=== PATIENT | female | born 1965 | race Caucasian/White ===

== ENCOUNTER 2019-12-29 17:29 | Emergency (ER) | payer MEDICAID ==
[2019-12-29] MEDS ORDERED: Sodium Chloride 0.9% 10 ML Syringe FLUSH PRN (17:48)
[2019-12-29] MEDS ORDERED: Ondansetron 4 MG/2 ML SDV IV ONE (17:57)
[2019-12-29] MEDS ORDERED: Lactated Ringers 1,000 ML IV ONE (17:57)
[2019-12-29] MEDS ORDERED: fentaNYL 50 MCG/ML SDV IVPUSH ONE (17:57)
--- NOTE | 2019-12-29 18:13 | EDM.PDOC ---
ED HPI GENERAL MEDICAL PROBLEM - General Stated Complaint: ABDOMINAL PAIN Time Seen by Provider: 12/29/19 17:30 Source of Information: Reports: Patient History Limitations: Reports: No Limitations - History of Present Illness INITIAL COMMENTS - FREE TEXT/NARRATIVE: Patient comes emergency department today from the clinic for further evaluation of left chest wall pain and abdominal pain. The clinic and sent over here for further evaluation due to concerns of change in her hemoglobin as well as pallor and pain out of proportion to exam. This patient on 12/20/2019 was walking down the steps holding the handrail with her left hand when she fell landing on her right side and really pulled on her left arm when she fell. She did not hit her head. There was no head neck or back pain. She does not remember hitting her chest but since that time in the mid axillary line of the left lateral chest about the fifth 6 intercostal space she has had pain that is intermittent primarily with movement. His pain has been constant for the past 9 days. She has tried some ibuprofen without improvement. She has no shortness of breath or difficulty breathing. No midsternal chest pain. Past couple of days she has felt somewhat lightheaded and generalized weakness. No fatigue malaise or body aches. No fever or chills. No cough or congestion or shortness of breath. No midsternal chest pain. No syncope. She also complains of some left upper quadrant lateral pain to her abdomen. No nausea or vomiting. No other pain in her abdomen. No hematuria dysuria or urinary frequency. No black or tarry stools. No flank pain. No head neck or back pain. She denies any loss of consciousness with the fall. No Covid exposure no Covid symptoms. Abdomen Pain Score (Numeric/FACES): 2 - Related Data Allergies Allergy/AdvReac Type Severity Reaction Status Date / Time codeine Allergy Other Verified 12/29/19 19:06 latex Allergy Other Verified 12/29/19 19:07 Home Meds: Home Meds Citalopram [Citalopram HBr] 40 mg PO DAILY 12/29/19 [History] Cyclobenzaprine [Flexeril] 10 mg PO TID PRN #9 tab 12/29/19 [Rx] ED ROS GENERAL - Review of Systems Review Of Systems: Comprehensive ROS is negative, except as noted in HPI. ED EXAM, GENERAL - Physical Exam Exam: See Below Exam Limited By: No Limitations General Appearance: Alert, WD/WN, No Apparent Distress Eye Exam: Bilateral Eye: EOMI, PERRL Ears: Normal External Exam, Normal TMs Nose: Normal Inspection, Normal Mucosa, No Blood Throat/Mouth: Normal Inspection, Normal Lips, Normal Teeth, Normal Gums, Normal Oropharynx, Normal Voice, No Airway Compromise Head: Atraumatic, Normocephalic Neck: Normal Inspection, Supple, Non-Tender. No: Tender Lateral, Tender Midline Respiratory/Chest: No Respiratory Distress, Lungs Clear, Normal Breath Sounds, No Accessory Muscle Use, Other (Examination of the chest on the left lateral mid axillary line about the fifth 6 intercostal space there is a about pea-sized bruise. There is some mild tenderness over this area. There is no subcutaneous emphysema crepitus flail segments. The rest of the chest is unremarkable and atraumatic. There is no tachypnea increased work of breathing.) Cardiovascular: Normal Peripheral Pulses, Regular Rate, Rhythm, No JVD, No Murmur Peripheral Pulses: 2+: Radial (L), Radial (R), Posterior Tibial (L), Posterior Tibial (R), Dorsalis Pedis (L), Dorsalis Pedis (R) GI/Abdominal: Normal Bowel Sounds, Soft, Pelvis Stable, Tender (There is some mild tenderness in the left upper quadrant without rebound or guarding. There is no rigidity to the abdomen.) (Female) Exam: Deferred Rectal (Female) Exam: Deferred Back Exam: Normal Inspection, Full Range of Motion. No: CVA Tenderness (L), CVA Tenderness (R), Decreased Range of Motion, Paraspinal Tenderness, Vertebral Tenderness Extremities: Normal Inspection, Normal Range of Motion, Non-Tender, No Pedal Edema, Normal Capillary Refill Neurological: Alert, Oriented, CN II-XII Intact, Normal Cognition, Normal Gait, Normal Reflexes, No Motor/Sensory Deficits Psychiatric: Normal Affect, Normal Mood Skin Exam: Intact, Cool, Diaphoretic, Pallor #1 Interpretation EKG Date: 12/29/19 Time: 17:48 Rhythm: NSR Rate (Beats/Min): 62 [place]: Normal P-Wave: Present QRS: Normal ST-T: Normal QT: Normal Comparison: NA - No Prior EKG Course - Vital Signs Last Recorded V/S: Last Vital Signs Temp 98.1 F 12/29/19 17:30 Pulse 61 12/29/19 18:07 Resp 20 12/29/19 17:30 BP 125/60 12/29/19 18:07 Pulse Ox 97 12/29/19 17:30 - Orders/Labs/Meds Orders: Active Orders 24 hr Category Date Time Status EKG Documentation Completion [RC] STAT Care 12/29/19 17:43 Active UA RFX JONAS AND CULT IF INDIC [URIN] Stat Lab 12/29/19 19:40 Ordered Lactated Ringers [Ringers, Lactated] 1,000 ml Med 12/29/19 19:15 Active IV ASDIRECTED Sodium Chloride 0.9% [Saline Flush] Med 12/29/19 17:48 Active 10 ml FLUSH ASDIRECTED PRN Peripheral IV Insertion Adult [OM.PC] Stat Oth 12/29/19 17:43 Ordered Medication Orders Lactated Ringer's (Ringers, Lactated) 1,000 mls @ 500 mls/hr IV ASDIRECTED KETTY Sodium Chloride (Saline Flush) 10 ml FLUSH ASDIRECTED PRN PRN Reason: Keep Vein Open Labs: Laboratory Tests 12/29/19 12/29/19 12/29/19 Range/Units 18:20 18:20 18:20 WBC 6.9 (4.0-10.0) x10^3/uL RBC 3.77 L (4.00-5.50) x10^6/uL Hgb 8.7 L (12.0-16.0) g/dL Hct 29.0 L (33.0-47.0) % MCV 76.9 L (78.0-93.0) fL MCH 23.1 L (26.0-32.0) pg MCHC 30.0 L (32.0-36.0) g/dL RDW Coeff of Romaine 15.0 (10.0-15.0) % Plt Count 219 (130-400) x10^3/uL Neut % (Auto) 68.2 (50.0-80.0) % Lymph % (Auto) 22.1 L (25.0-50.0) % [place] % (Auto) 7.5 (2.0-11.0) % Eos % (Auto) 1.9 (0.0-4.0) % Baso % (Auto) 0.3 (0.2-1.2) % Sodium 144 (136-145) mmol/L Potassium 3.7 (3.5-5.1) mmol/L Chloride 107 (98-107) mmol/L Carbon Dioxide 28 (21-32) mmol/L Anion Gap 12.7 (10-20) mmol/L BUN 18 (7-18) mg/dL Creatinine 1.4 H (0.55-1.02) mg/dL Est Cr Clr Drug Dosing TNP Estimated GFR (MDRD) 39 Glucose 98 (74-106) mg/dL Lactic Acid (0.4-2.0) mmol/L Calcium 8.6 (8.5-10.1) mg/dL Corrected Calcium 9.16 (8.5-10.1) mg/dL Total Bilirubin 0.3 (0.2-1.0) mg/dL AST 66 H (15-37) U/L ALT 143 H (14-59) U/L Alkaline Phosphatase 110 (46-116) U/L Troponin I < 0.017 (<=0.056) ng/mL C-Reactive Protein 0.3 (<=0.9) mg/dL Total Protein 6.3 L (6.4-8.2) g/dL Albumin 3.3 L (3.4-5.0) g/dL Globulin 3.0 Albumin/Globulin Ratio 1.10 Lipase 103 (73-393) U/L Urine Color (YELLOW) Urine Appearance (CLEAR) Urine pH (5.0-8.0) Ur Specific [place] Urine Protein (NEGATIVE) mg/dL Urine Glucose (UA) (NEGATIVE) mg/dL Urine Ketones (NEGATIVE) mg/dL Urine Occult Blood (NEGATIVE) Urine Nitrite (NEGATIVE) Urine Bilirubin (NEGATIVE) Urine Urobilinogen (0.2) EU/dL Ur Leukocyte Esterase (NEGATIVE) 12/29/19 12/29/19 Range/Units 18:20 19:40 WBC (4.0-10.0) x10^3/uL RBC (4.00-5.50) x10^6/uL Hgb (12.0-16.0) g/dL Hct (33.0-47.0) % MCV (78.0-93.0) fL MCH (26.0-32.0) pg MCHC (32.0-36.0) g/dL RDW Coeff of Romaine (10.0-15.0) % Plt Count (130-400) x10^3/uL Neut % (Auto) (50.0-80.0) % Lymph % (Auto) (25.0-50.0) % [place] % (Auto) (2.0-11.0) % Eos % (Auto) (0.0-4.0) % Baso % (Auto) (0.2-1.2) % Sodium (136-145) mmol/L Potassium (3.5-5.1) mmol/L Chloride (98-107) mmol/L Carbon Dioxide (21-32) mmol/L Anion Gap (10-20) mmol/L BUN (7-18) mg/dL Creatinine (0.55-1.02) mg/dL Est Cr Clr Drug Dosing Estimated GFR (MDRD) Glucose (74-106) mg/dL Lactic Acid 1.8 (0.4-2.0) mmol/L Calcium (8.5-10.1) mg/dL Corrected Calcium (8.5-10.1) mg/dL Total Bilirubin (0.2-1.0) mg/dL AST (15-37) U/L ALT (14-59) U/L Alkaline Phosphatase (46-116) U/L Troponin I (<=0.056) ng/mL C-Reactive Protein (<=0.9) mg/dL Total Protein (6.4-8.2) g/dL Albumin (3.4-5.0) g/dL Globulin Albumin/Globulin Ratio Lipase (73-393) U/L Urine Color Yellow (YELLOW) Urine Appearance Clear (CLEAR) Urine pH 6.0 (5.0-8.0) Ur Specific [place] 1.010 Urine Protein Negative (NEGATIVE) mg/dL Urine Glucose (UA) Negative (NEGATIVE) mg/dL Urine Ketones Negative (NEGATIVE) mg/dL Urine Occult Blood Negative (NEGATIVE) Urine Nitrite Negative (NEGATIVE) Urine Bilirubin Negative (NEGATIVE) Urine Urobilinogen 1.0 (0.2) EU/dL Ur Leukocyte Esterase Negative (NEGATIVE) Meds: Medications Generic Name Dose Route Start Last Admin Trade Name Freq PRN Reason Stop Dose Admin Lactated Ringer's 1,000 mls @ 500 mls/hr 12/29/19 19:15 Ringers, Lactated IV ASDIRECTED KETTY Sodium Chloride 10 ml 12/29/19 17:48 Saline Flush FLUSH ASDIRECTED PRN Keep Vein Open Discontinued Medications Generic Name Dose Route Start Last Admin Trade Name Chidi PRN Reason Stop Dose Admin Cyclobenzaprine HCl 1 packet 12/29/19 19:59 Take Home: Cyclobenzaprine 10 Mg, 4 Tab Pack PO 12/29/19 20:00 ONETIME ONE Fentanyl 50 mcg 12/29/19 17:57 12/29/19 18:10 Fentanyl IVPUSH 12/29/19 17:58 50 mcg ONETIME ONE Administration Lactated Ringer's 1,000 mls @ 999 mls/hr 12/29/19 17:57 12/29/19 17:46 Ringers, Lactated IV 12/29/19 18:57 999 mls/hr ONETIME ONE Administration Iopamidol 100 ml 12/29/19 18:22 12/29/19 18:46 Isovue-300 (61%) IVPUSH 12/29/19 18:23 100 ml ONETIME ONE Administration Ondansetron HCl 4 mg 12/29/19 17:57 12/29/19 18:07 Zofran IV 12/29/19 17:58 4 mg ONETIME ONE Administration - Radiology Interpretation Free Text/Narrative:: CT chest abdomen pelvis per radiology no evidence of hematoma or bleeding in the chest abdomen or pelvis. No other acute findings. Some chronic changes of gastric bypass as well as cholecystectomy. - Re-Assessments/Exams Free Text/Narrative Re-Assessment/Exam: 12/29/19 Since initial blood pressure when she is sitting on the chair and symptomatic with some weakness and lightheadedness shows a blood pressure of 87/55. Patient was laid on the bed and a IV was established 1 L LR wide open. Reviewed the chest x-ray with the left rib detail that was completed in the clinic show no acute fracture hemopneumothorax consolidation or effusion. Laboratory evaluation shows a hemoglobin of 8.7 with a ascitic hyperchromic iron deficiency anemia pattern. The patient does have a longstanding history of iron deficiency anemia she has not received any iron infusions for the past 3 years as she has not been seeing her primary care provider. She did have mild elevation of her creatinine 1.4 with a BUN of 18 in the fashion of acute kidney injury most likely due to dehydration and her hypovolemia in the presence of hypotension. CT scan of the chest abdomen pelvis shows no acute findings some other chronic findings gastric bypass as well as cholecystectomy. The patient did have improvement of her blood pressure as well as her color following the administration of the first liter of fluid. She was still unable to give a urine. She was given another 800 mill bolus and eventually was able to give a urine which was negative for any infection or blood. He was given some fentanyl and Zofran with improvement of her pain. Not finding any cause for her pain out of proportion to exam which really is not that concerning to me in the emergency department. Her CAT scan is normal. Her she is somewhat anemic although this appears to be chronic with iron deficiency anemia. I wonder if this is more of a pulled muscle in the fashion of how she fell with her arm holding onto the handrail. We will send her home with Flexeril for the next couple of days. Needs to follow-up with her primary care provider to get evaluation for her chronic anemia. She needs most likely IV replacement therapy due to her gastric bypass and malabsorption known history. Anything new or worse she is to recheck. She is comfortable this plan and her questions are answered. Departure - Departure Time of Disposition: 19:30 Disposition: Home, Self-Care 01 Clinical Impression: SHEILA (acute kidney injury), Left-sided chest wall pain Hypotension Qualifiers: Hypotension type: hypotension due to hypovolemia Qualified Code(s): I95.89 - Other hypotension - Discharge Information Prescriptions: Cyclobenzaprine [Flexeril] 10 mg PO TID PRN #9 tab PRN Reason: Pain Instructions: Hypotension, [id number], Chest Wall Pain, [id number], Pain Medicine Instructions, [id number] Referrals: Dale Rojas MD [Primary Care Provider] - Additional Instructions: Tylenol as needed for pain. Heat or ice to the sore areas which ever works best. Flexeril 1 tablet three times a day as needed for muscle spasm pain of the left chest. Rx to [facility]. Consider self referral to physical therapy if not improving. Return to the ED if new or worsening symptoms. Follow up with PCP in the next 4-6 days if not improving sooner if worse. Sepsis Event Note (ED) - Focused Exam Vital Signs: Vital Signs Temp Pulse Resp BP Pulse Ox 12/29/19 18:07 61 125/60 12/29/19 17:45 67 107/53 L 12/29/19 17:30 98.1 F 20 L 20 87/55 L 97 - My Orders Last 24 Hours: My Active Orders 12/29/19 17:43 EKG Documentation Completion [RC] STAT Peripheral IV Insertion Adult [OM.PC] Stat 12/29/19 17:48 Sodium Chloride 0.9% [Saline Flush] 10 ml FLUSH ASDIRECTED PRN 12/29/19 19:15 Lactated Ringers [Ringers, Lactated] 1,000 ml IV ASDIRECTED 12/29/19 19:40 UA RFX JONAS AND CULT IF INDIC [URIN] Stat - Assessment/Plan Last 24 Hours: My Active Orders 12/29/19 17:43 EKG Documentation Completion [RC] STAT Peripheral IV Insertion Adult [OM.PC] Stat 12/29/19 17:48 Sodium Chloride 0.9% [Saline Flush] 10 ml FLUSH ASDIRECTED PRN 12/29/19 19:15 Lactated Ringers [Ringers, Lactated] 1,000 ml IV ASDIRECTED 12/29/19 19:40 UA RFX JONAS AND CULT IF INDIC [URIN] Stat
[2019-12-29] MEDS ORDERED: Iopamidol 612 MG/ML 100 ML Bottle IVPUSH ONE (18:22)
[2019-12-29 18:52] LABS: ANION GAP 12.7 mmol/L (10-20); CHLORIDE,CL 107 mmol/L (98-107); SODIUM,NA 144 mmol/L (136-145)
[2019-12-29] MEDS ORDERED: Lactated Ringers 1,000 ML IV SCH (19:15)
--- NOTE | 2019-12-29 19:19 | CT ---
[id number] CT/CT Chest Abdomen Pelvis W IV EXAM: CT Chest Abdomen Pelvis W IV CLINICAL DATA: HYPOTENSION, LEFT CHEST PAIN, LEFT UPPER QUADRANT PAIN, COMPARISON STUDY: None. FINDINGS: 5 mm solid noncalcified right middle lobe nodule. Mild emphysematous change scattered throughout both lungs. No pneumonia, effusion, edema, or pneumothorax. No pneumomediastinum. No mediastinal or hilar lymphadenopathy. Heart is normal in size. No pericardial effusion. No evidence of acute aortic injury. Abdomen and pelvis: Liver, spleen, pancreas, and adrenal glands are unremarkable. Cholecystectomy clips in the gallbladder fossa. Postcholecystectomy dilation of the biliary ductal system. Nonobstructing nephrolithiasis. Overall stone burden is mild. 11 mm right parenchymal renal cyst. Post surgical change from gastric bypass. No evidence of bowel injury, obstruction, or inflammation. Multiple small fat-containing ventral midline abdominal wall herniations. Urinary bladder is intact. No lymphadenopathy, free fluid, or pneumoperitoneum. Bones and soft tissues: No fracture, compression deformity, or osseous lesion. 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 IMPRESSION: No evidence of hematoma or bleeding in the chest, abdomen, or pelvis. No other acute findings. Chronic findings are described above. Scotty Turk MD 12/29/19 1536 Thank you for allowing us to participate in the care of your patient.
[2019-12-29] MEDS ORDERED: Take Home: Cyclobenzaprine 10 MG Tab, 4 Tab Pack PO ONE (19:59)
== END 2019-12-29 20:06 | disposition home or self-care (01) ==
LOC: VM.ED 17:29
DX: N17.9 Acute kidney failure, unspecified (principal); I95.89 Other hypotension; Z88.5 Allergy status to narcotic agent; Z91.040 Latex allergy status; Z79.899 Other long term (current) drug therapy
CPT/HCPCS: 36415; 71260; 74177; 80053; 81003; 83605; 83690; 84484; 85025; 86140; 93005; 93010; 96374; 96375; 99284; 99284-25; A9270-GY; J2405; J3010; J7120; Q9967